=== PATIENT | female | born 1990 | race Caucasian/White ===

== ENCOUNTER 2018-10-24 13:18 | Outpatient (CLI) | payer OTHER ==
[~2018-10-24] VITALS: Ht 157.5 cm; Wt 100.4 kg
[2018-10-24 13:50] VITALS: BP 124/79; PULSE 95; Ht 157.5 cm; Wt 100.4 kg
[2018-10-24] MEDS ORDERED: PNV11TAB PO (13:52)
--- NOTE | 2018-10-24 19:20 | TRIAGE ---
OB Triage Datetime Report Generated by CPN: 10/24/2018 19:20 Datetime: 10/24/2018 17:05 Labor Evaluation Frequency: 0 Monitor Mode: External Pattern: Normal: <= 5 Contractions in 10 Minutes Resting Tone Ignacio: Relaxed Heart Rate FHR Baseline Rate: 135 Monitor Mode: External US Variability: Moderate 6-25 bpm Accelerations: 10X10 Decelerations: None Category: Category I Pain Assessment Pain Scale: 0 Pain Presence: None/Denies Pain Type: N/A Pain Goal: 3 Pain Relief Measures: Comfort Measures Datetime: 10/24/2018 16:13 Labor Evaluation Frequency: 0 Monitor Mode: External Pattern: Normal: <= 5 Contractions in 10 Minutes Resting Tone Ignacio: Relaxed Heart Rate FHR Baseline Rate: 145 Monitor Mode: External US Variability: Moderate 6-25 bpm Accelerations: 10X10 Decelerations: None Category: Category I Pain Assessment Pain Scale: 0 Pain Presence: None/Denies Pain Type: N/A Pain Goal: 3 Pain Relief Measures: Comfort Measures Datetime: 10/24/2018 14:56 Labor Evaluation Frequency: 0 Monitor Mode: External Pattern: Normal: <= 5 Contractions in 10 Minutes Resting Tone Ignacio: Relaxed Heart Rate FHR Baseline Rate: 145 Monitor Mode: External US Variability: Moderate 6-25 bpm Accelerations: 10X10 Decelerations: None Category: Category I Pain Assessment Pain Scale: 0 Pain Presence: None/Denies Pain Type: N/A Pain Goal: 3 Pain Relief Measures: Comfort Measures Datetime: 10/24/2018 13:59 Stage of : OB Triage Datetime: 10/24/2018 13:47 Stage of : OB Triage Assessment Type: Triage Maternal Assessment Level of Consciousness: Fully Conscious DTR's/Clonus: DTRs 2+; No Clonus Headache: Denies Blurred Vision: No Respiratory Effort: Unlabored; Regular Rhythm; Equal Expansion Breath Sounds, Left: Clear and Equal Breath Sounds, Right: Clear and Equal Nausea/Vomiting: Denies RUQ Epigastric Pain: Denies Facial Edema: None Temperature Route: Axillary Fall Risk Assessment History of Falling: (0) No Secondary Diagnosis: (0) No Ambulatory Aid: (0) Bedrest/Nurse Assist IV Therapy: (0) No Gait: (0) Normal/Bedrest/Immobile Mental Status: (0) Oriented to Own Ability Fall Score: 0 Fall Risk Score Definition: No Risk: No action required Labor Evaluation Frequency: 0 Monitor Mode: External Pattern: Normal: <= 5 Contractions in 10 Minutes Resting Tone Ignacio: Relaxed Heart Rate FHR Baseline Rate: 145 Monitor Mode: External US Variability: Moderate 6-25 bpm Decelerations: None Category: Category I Pain Assessment Pain Scale: 0 Pain Presence: None/Denies Pain Type: N/A Pain Goal: 3 Pain Relief Measures: Comfort Measures Datetime: 10/24/2018 13:44 Time of Arrival: 10/24/2018 13:15 EGA: 32.6 Arrived By: Ambulatory Arrived From: Office Chief Complaint: REFERRED FROM OFFICE TO EVALUATE FOR PIH, DENIES BLURRY VISION, HEADACHES OR EPIGA STRIC PAIN, DENIES LEAKING BLEEDING OR UC'S Movement: Present Contractions: Denies/Absent Rupture of Membranes: Denies Vaginal Bleeding: None Vaginal Discharge: Denies Recent Sexual Intercouse: Denies Abdominal Trauma: Not Applicable Patient Complaints: None Time Provider Notified: 10/24/2018 14:00 Provider Notified: STEVE Initial Plan: MONITOR, PIH PANEL, BPP, UA
--- NOTE | 2018-10-25 13:18 | PN ---
Triage Information Date/Time late entry for service was rendered on 10/24/18 Reason for visit: referred from clinic for PIH Weeks of Gestation [id number] /Para Diabetes: none Hypertention: none Objective Vital Signs Date Temp Pulse Resp B/P (MAP) Pulse Ox O2 O2 Flow FiO2 Time Delivery Rate 10/24/18 98.3 95 124/79 13:50 (94) Heart Rate: 140's Heart Rate Comments CAT I tracing Contractions: None Results/Medications Result Diagram: 10/24/18 1444 10/24/18 1444 Results 24 hrs Laboratory Tests Test 10/24/18 14:00 10/24/18 14:44 Urine Color LUIS FERNANDO Urine Clarity CLOUDY A Urine pH 5.0 Urine Specific [place] 1.024 Urine Ketones 1+ H Urine Nitrite NEGATIVE Urine Bilirubin NEGATIVE Urine Urobilinogen 1+ H Urine Leukocyte Esterase 3+ H Urine Microscopic RBC 1 Urine Microscopic WBC 7 H Urine Squamous Epithelial Cells MODERATE Urine Bacteria FEW A Urine Mucus FEW A Urine Hemoglobin NEGATIVE Urine Glucose NEGATIVE Urine Total Protein NEGATIVE White Blood Count 9.1 Red Blood Count 3.61 L Hemoglobin 11.6 L Hematocrit 33.7 L Mean Corpuscular Volume 93.4 Mean Corpuscular Hemoglobin 32.1 Mean Corpuscular Hemoglobin Concent 34.4 Red Cell Distribution Width 12.4 Platelet Count 208 Mean Platelet Volume 9.7 Immature Granulocytes % 0.700 H Neutrophils % 73.9 Lymphocytes % 16.0 Monocytes % 8.8 Eosinophils % 0.3 Basophils % 0.3 Nucleated Red Blood Cells % 0.0 Immature Granulocytes # 0.060 H Neutrophils # 6.7 Lymphocytes # 1.5 Monocytes # 0.8 Eosinophils # 0.0 Basophils # 0.0 Nucleated Red Blood Cells # 0.0 Prothrombin Time 12.6 Prothrombin Time Ratio 1.0 INR International Normalized Ratio 0.93 Activated Partial Thromboplast Time 25.6 Fibrinogen 482.0 H Sodium Level 135 Potassium Level 3.7 Chloride Level 107 Carbon Dioxide Level 22 Anion Gap 6 Blood Urea Nitrogen 8 Creatinine 0.45 Est Glomerular Filtrat Rate mL/min > 60 Glucose Level 93 Uric Acid 4.8 Calcium Level 9.1 Total Bilirubin 0.9 Direct Bilirubin 0.00 Indirect Bilirubin 0.9 Aspartate Amino Transf (AST/SGOT) 20 Alanine Aminotransferase (ALT/SGPT) 12 L Alkaline Phosphatase 61 Total Protein 6.4 Albumin 3.3 Globulin 3.10 Albumin/Globulin Ratio 1.06 Imaging Results BPP 8/8 MYRON 14.9 Disposition: Discharge Assessment/Plan A IUP 32w6d R/O PIH normotensive P RTH prn STEVIE WILSON MD Oct 25, 2018 11:57
== END 2018-10-24 17:15 | disposition home or self-care (01) ==
LOC: L-D 13:18 → OBT 13:18
PROVIDERS: ATTEND Obstetrics & Gynecology
DX: O13.3 Gestational [pregnancy-induced] hypertension without significant proteinuria, third trimester (principal); Z3A.32 32 weeks gestation of pregnancy
CPT/HCPCS: 76818; 80053; 81001; 84560; 85025; 85384; 85610; 85730; Z7500; G0463

== ENCOUNTER 2018-11-28 12:02 | Inpatient (IN) | payer OTHER ==
[~2018-11-28] VITALS: Ht 157.5 cm; Wt 102.6 kg
[~2018-11-28 12:02] MED LIST: PNV11TAB PO
[2018-11-28 12:19] VITALS: Ht 157.5 cm; Wt 102.6 kg
--- NOTE | 2018-11-28 15:35 | HP ---
Date/Time of Note Date/Time of Note DATE: 11/28/18 TIME: 15:32 OB - History Hx of Present Free Text/Dictation 37+WKS GA with +2 proteinuria and HTN in the office : 1 Para: 0 Care: Good Care Ultrasounds: Normal mid trimester US Obstetrical Complications: None, Gestational Hypertension Medical Complications: None Past Family/Social History * Past Medical, Surgical, Family and Obstetric Histories reviewed from chart. OB Admission Exam Physical Exam Abdomen: WNL Cervical Dilatation: None Effacement: 0% Membranes: Intact Heart Rate: 140's Accelerations: Accelerations Present Decelerations: No Decelerations Varibility: Moderate Contractions on Admission: None Last 72 hours Lab Results CBC & BMP 11/28/18 12:17 Liver Function Test 11/28/18 12:17 Alanine Aminotransferase (ALT/SGPT) 9 L Albumin 3.5 Alkaline Phosphatase 82 Aspartate Amino Transf (AST/SGOT) 18 Direct Bilirubin 0.00 Total Protein 6.6 OB Assessment/Plan Reason for admission: observation Other Assessment: PMH Denies PSH Denies Plan: Expectant Management Other plan: 24 hr urine for Protein NIC GASTELUM M.D. November 28, 2018 15:35
[2018-11-28] MEDS ORDERED: LIDOCAINE 1% (MPF) 30 ML INJ INJ PRN (16:00)
[2018-11-28] MEDS ORDERED: METHYLERGONOVINE 0.2 MG INJ IM PRN (16:00)
[2018-11-28] MEDS ORDERED: OXYTOCIN 30 UNITS/LR 500 ML IV PRN (16:00)
[2018-11-28] MEDS ORDERED: OXYTOCIN 30 UNITS/LR 500 ML IV SCH ×2 (16:00)
[2018-11-28] MEDS ORDERED: MISOPROSTOL 200 MCG TAB PR PRN (16:00)
[2018-11-28] MEDS ORDERED: CARBOPROST 250 MCG INJ IM PRN (16:00)
[2018-11-28] MEDS ORDERED: ACETAMINOPHEN 500 MG TAB PO PRN (21:30)
[2018-11-29] MEDS: LACTATED RINGER'S 1,000 ML IV SCH (20:41)
--- NOTE | 2018-11-29 20:56 | DS ---
Date/Time of Note Date/Time of Note DATE: 11/29/18 TIME: 20:53 Obstetrical Discharge Record Final Diagnosis Final Diagnosis: Term not delivered Other Final Diagnosis Normotensive. Complications Other (Ptsent in for high blood pressure but her BPs have been in the normal range while her and hr labs and 24 hour protein levels were very normal.) Augmentation: No Induction: No Rupture of Membranes: No Condition on Discharge Physical Assessment Last Vitals: 119/85 Voiding: Yes Bowel Movement: Yes Breast: Soft, non-tender Fundus: Other (gravid) Calf Tenderness: No Patient Condition: Good MARY GRACE ROMO MD November 29, 2018 20:56
== END 2018-11-29 21:04 | disposition home or self-care (01) | DRG 833 ==
LOC: OBT 12:02 → L-D 12:03 → OBT 15:30 → L-D 15:30
PROVIDERS: ADMIT Obstetrics & Gynecology; ATTEND Obstetrics & Gynecology
DX: O13.3 Gestational [pregnancy-induced] hypertension without significant proteinuria, third trimester (principal); Z3A.37 37 weeks gestation of pregnancy
CPT/HCPCS: 76818; 80053; 81001; 84156; 84560; 85025; 85384; 85610; 85730; 86592; 86850; 86900; 86901; G0463; J7120

== ENCOUNTER 2018-12-05 02:28 | Inpatient (IN) | payer OTHER ==
[~2018-12-05] VITALS: Ht 157.5 cm; Wt 103.9 kg
[2018-12-05] MEDS ORDERED: FERR134T PO (02:57)
[2018-12-05 02:58] VITALS: BP 146/90; PULSE 86; RESP 18
[2018-12-05] MEDS ORDERED: LACTATED RINGER'S 1,000 ML IV PRN (02:59)
[2018-12-05] MEDS ORDERED: CARBOPROST 250 MCG INJ IM PRN ×2 (03:00→17:00)
[2018-12-05] MEDS ORDERED: AMPICILLIN 2 GM/NS (PMX) 100 ML IV ONE (03:00)
[2018-12-05] MEDS ORDERED: LIDOCAINE 1% (MPF) 30 ML INJ INJ PRN (03:00)
[2018-12-05] MEDS ORDERED: METHYLERGONOVINE 0.2 MG INJ IM PRN ×2 (03:00→17:00)
[2018-12-05] MEDS ORDERED: IBUPROFEN 600 MG TAB PO PRN (03:00)
[2018-12-05] MEDS ORDERED: OXYTOCIN 30 UNITS/LR 500 ML IV PRN ×2 (03:00→17:00)
[2018-12-05] MEDS ORDERED: OXYTOCIN 30 UNITS/LR 500 ML IV SCH ×3 (03:00→11:00)
[2018-12-05] MEDS ORDERED: BUTORPHANOL 2 MG INJ IV PRN ×2 (03:00)
[2018-12-05] MEDS ORDERED: MISOPROSTOL 200 MCG TAB PR PRN ×2 (03:00→17:00)
--- NOTE | 2018-12-05 03:41 | TRIAGE ---
OB Triage Datetime Report Generated by CPN: 12/05/2018 03:41 Datetime: 12/05/2018 02:48 Stage of : OB Triage Labor Evaluation Frequency: 2-5 Monitor Mode: External Duration (sec)2399: 60 Quality: Moderate Pattern: Normal: <= 5 Contractions in 10 Minutes Resting Tone [place]: Relaxed Heart Rate FHR Baseline Rate: 145 Monitor Mode: External US FHR Baseline Changes: No Baseline Change Variability: Moderate 6-25 bpm Accelerations: 15X15 Decelerations: None Category: Category I Pain Assessment Pain Scale: 9 Pain Presence: Intermittent Pain Type: Contraction; Pressure Pain Location: Abdomen Vaginal Exam Dilatation (cms): 4.0 Effacement (%): 90 Station: -2 Exam By: Abiel oHlm Membrane Status: Intact Vaginal Bleeding: Normal Show Cervix, Consistency: Soft Cervix, Position: Midposition Presentation 'A': Cephalic Datetime: 12/05/2018 02:35 Stage of : OB Triage Maternal Assessment Level of Consciousness: Fully Conscious DTR's/Clonus: DTRs 2+; No Clonus Headache: Denies Blurred Vision: No Nausea/Vomiting: Denies RUQ Epigastric Pain: Denies Facial Edema: None Monitor Mode: External Resting Tone [place]: Relaxed Monitor Mode: External US Comments: FHT 145 Pain Assessment Pain Scale: 9 Pain Presence: Intermittent Pain Type: Contraction; Pressure Pain Location: Abdomen Datetime: 12/05/2018 02:32 Time of Arrival: 12/05/2018 02:25 EGA: 38.6 Arrived By: Wheelchair Arrived From: Home Chief Complaint: c/o ucs and pressure Movement: Present Contractions: Regular Time Contractions Began: 12/04/2018 23:00 Contractions: Q3 Rupture of Membranes: Denies Vaginal Bleeding: None Vaginal Discharge: Present Recent Sexual Intercouse: Denies Abdominal Trauma: Not Applicable Patient Complaints: Contractions Time Provider Notified: 12/05/2018 02:50 Provider Notified: Dr Erickson Initial Plan: EFM,SVE Datetime: 11/29/2018 20:23 Labor Evaluation Frequency: NONE Monitor Mode: External Resting Tone [place]: Relaxed Heart Rate FHR Baseline Rate: 145 Monitor Mode: External US Variability: Moderate 6-25 bpm Accelerations: 15X15 Decelerations: None Category: Category I Datetime: 11/29/2018 20:22 Vaginal Exam Dilatation (cms): 2.0 Effacement (%): 60 Station: -2 Exam By: dr. reiche Membrane Status: Intact Datetime: 11/29/2018 20:09 Stage of : Labor Assessment Type: Ongoing Assessment Maternal Assessment Level of Consciousness: Fully Conscious DTR's/Clonus: DTRs 2+; No Clonus Headache: Denies Blurred Vision: No Respiratory Effort: Unlabored; Regular Rhythm; Equal Expansion Breath Sounds, Left: Clear and Equal Breath Sounds, Right: Clear and Equal Nausea/Vomiting: Denies RUQ Epigastric Pain: Denies Lower Extremities Edema: Bilateral Lower Extremities Degree: 1+ Upper Extremities Edema: None Degree: None Facial Edema: None Temperature Route: Oral Fall Risk Assessment History of Falling: (0) No Secondary Diagnosis: (0) No Ambulatory Aid: (0) Bedrest/Nurse Assist IV Therapy: (0) No Gait: (0) Normal/Bedrest/Immobile Mental Status: (0) Oriented to Own Ability Fall Score: 0 Fall Risk Score Definition: No Risk: No action required Pain Assessment Pain Scale: 0 Pain Presence: None/Denies Pain Type: N/A Datetime: 11/29/2018 20:06 Monitor Mode: External Monitor Mode: External US Datetime: 11/29/2018 20:00 Labor Evaluation Frequency: NONE Monitor Mode: External Resting Tone [place]: Relaxed Heart Rate FHR Baseline Rate: 145 Monitor Mode: External US Variability: Moderate 6-25 bpm Accelerations: 15X15 Decelerations: None Category: Category I Datetime: 11/29/2018 19:44 Monitor Mode: External US Datetime: 11/29/2018 19:23 Monitor Mode: External US Datetime: 11/29/2018 18:58 Labor Evaluation Frequency: none Resting Tone [place]: Relaxed Heart Rate FHR Baseline Rate: 140 Monitor Mode: External US FHR Baseline Changes: No Baseline Change Variability: Moderate 6-25 bpm Accelerations: 15X15 Decelerations: None Category: Category I Membrane Status: Intact Datetime: 11/29/2018 17:58 Labor Evaluation Frequency: none Resting Tone [place]: Relaxed Heart Rate FHR Baseline Rate: 130 Monitor Mode: External US FHR Baseline Changes: No Baseline Change Variability: Moderate 6-25 bpm Accelerations: 15X15 Decelerations: None Category: Category I Pain Presence: None/Denies Membrane Status: Intact Datetime: 11/29/2018 16:55 Labor Evaluation Frequency: none Resting Tone [place]: Relaxed Heart Rate FHR Baseline Rate: 135 Monitor Mode: External US FHR Baseline Changes: No Baseline Change Variability: Moderate 6-25 bpm Accelerations: 15X15 Decelerations: None Category: Category I Pain Presence: None/Denies Membrane Status: Intact Datetime: 11/29/2018 15:58 Labor Evaluation Frequency: NONE Monitor Mode: External Pattern: Normal: <= 5 Contractions in 10 Minutes Resting Tone [place]: Relaxed Heart Rate FHR Baseline Rate: 143 Monitor Mode: External US FHR Baseline Changes: No Baseline Change Variability: Moderate 6-25 bpm Accelerations: 15X15 Decelerations: None Category: Category I Datetime: 11/29/2018 15:06 Labor Evaluation Frequency: NONE Pattern: Normal: <= 5 Contractions in 10 Minutes Resting Tone [place]: Relaxed Heart Rate FHR Baseline Rate: 145 Monitor Mode: External US FHR Baseline Changes: No Baseline Change Variability: Moderate 6-25 bpm Accelerations: 15X15 Decelerations: None Category: Category I Membrane Status: Intact Datetime: 11/29/2018 13:58 Labor Evaluation Frequency: NONE Monitor Mode: External Pattern: Normal: <= 5 Contractions in 10 Minutes Resting Tone [place]: Relaxed Heart Rate FHR Baseline Rate: 140 Monitor Mode: External US FHR Baseline Changes: No Baseline Change Variability: Moderate 6-25 bpm Accelerations: 15X15 Decelerations: None Category: Category I Membrane Status: Intact Datetime: 11/29/2018 10:15 Labor Evaluation Frequency: NONE Monitor Mode: External Pattern: Normal: <= 5 Contractions in 10 Minutes Resting Tone [place]: Relaxed Heart Rate FHR Baseline Rate: 135 Monitor Mode: External US FHR Baseline Changes: No Baseline Change Variability: Moderate 6-25 bpm Accelerations: 15X15 Decelerations: None Category: Category I Membrane Status: Intact Datetime: 11/29/2018 09:15 Labor Evaluation Frequency: none Monitor Mode: External Pattern: Normal: <= 5 Contractions in 10 Minutes Resting Tone [place]: Relaxed Heart Rate FHR Baseline Rate: 135 Monitor Mode: External US FHR Baseline Changes: No Baseline Change Variability: Moderate 6-25 bpm Accelerations: 15X15 Decelerations: None Category: Category I Pain Presence: None/Denies Membrane Status: Intact Datetime: 11/29/2018 08:16 Labor Evaluation Frequency: none Pattern: Normal: <= 5 Contractions in 10 Minutes Resting Tone [place]: Relaxed Heart Rate FHR Baseline Rate: 132 Monitor Mode: External US FHR Baseline Changes: No Baseline Change Variability: Moderate 6-25 bpm Accelerations: 15X15 Decelerations: None Category: Category I Pain Presence: None/Denies Membrane Status: Intact Datetime: 11/29/2018 07:43 Labor Evaluation Frequency: NONE Monitor Mode: External Quality: Mild Pattern: Normal: <= 5 Contractions in 10 Minutes Resting Tone [place]: Relaxed Contraction Comments: TOCO CHANGED , SITE CLEANED. Heart Rate FHR Baseline Rate: 136 Monitor Mode: External US FHR Baseline Changes: No Baseline Change Variability: Moderate 6-25 bpm Accelerations: 15X15 Decelerations: None Category: Category I Comments: MONITOR CHANGED , SITE CLEANED. Membrane Status: Intact Datetime: 11/29/2018 07:40 Assessment Type: Ongoing Assessment Maternal Assessment Level of Consciousness: Fully Conscious DTR's/Clonus: DTRs 2+; No Clonus Headache: Denies Blurred Vision: No Respiratory Effort: Unlabored; Regular Rhythm; Equal Expansion Breath Sounds, Left: Clear and Equal Breath Sounds, Right: Clear and Equal Nausea/Vomiting: Denies RUQ Epigastric Pain: Denies Lower Extremities Edema: None Degree: None Upper Extremities Edema: None Degree: None Facial Edema: None Fall Risk Assessment History of Falling: (0) No Secondary Diagnosis: (0) No Ambulatory Aid: (0) Bedrest/Nurse Assist IV Therapy: (0) No Gait: (0) Normal/Bedrest/Immobile Mental Status: (0) Oriented to Own Ability Fall Score: 0 Fall Risk Score Definition: No Risk: No action required Datetime: 11/29/2018 05:11 Stage of : Labor Headache: Denies Blurred Vision: No Monitor Mode: External Quality: Mild Pattern: Normal: <= 5 Contractions in 10 Minutes Resting Tone [place]: Relaxed Heart Rate FHR Baseline Rate: 130 Monitor Mode: External US Variability: Moderate 6-25 bpm Accelerations: 15X15 Decelerations: None Category: Category I Datetime: 11/29/2018 04:42 Heart Rate FHR Baseline Rate: 140 Monitor Mode: External US FHR Baseline Changes: No Baseline Change Variability: Moderate 6-25 bpm Accelerations: 15X15 Category: Category I Datetime: 11/29/2018 04:12 Stage of : Labor Heart Rate FHR Baseline Rate: 130 Monitor Mode: External US Variability: Moderate 6-25 bpm Accelerations: 15X15 Category: Category I Datetime: 11/29/2018 03:54 Heart Rate FHR Baseline Rate: 140 Monitor Mode: External US Datetime: 11/29/2018 03:26 Stage of : Labor Quality: Mild Pattern: Normal: <= 5 Contractions in 10 Minutes Resting Tone [place]: Relaxed Heart Rate FHR Baseline Rate: 140 Monitor Mode: External US Datetime: 11/29/2018 03:05 Membrane Status: Intact Datetime: 11/29/2018 02:34 Stage of : Labor Monitor Mode: External Quality: Mild Pattern: Normal: <= 5 Contractions in 10 Minutes Resting Tone [place]: Relaxed Heart Rate FHR Baseline Rate: 130 Monitor Mode: External US Datetime: 11/29/2018 01:53 Comments: Pt frequently moving in bed. Difficult to monitor baby Datetime: 11/29/2018 01:16 Stage of : Labor Heart Rate FHR Baseline Rate: 135 Monitor Mode: External US Variability: Moderate 6-25 bpm Accelerations: 15X15 Datetime: 11/29/2018 00:44 Monitor Mode: External Quality: Mild Resting Tone [place]: Relaxed Heart Rate FHR Baseline Rate: 150 Monitor Mode: External US Datetime: 11/29/2018 00:19 Stage of : Labor Monitor Mode: External Quality: Mild Pattern: Normal: <= 5 Contractions in 10 Minutes Resting Tone [place]: Relaxed Heart Rate FHR Baseline Rate: 145 Monitor Mode: External US FHR Baseline Changes: No Baseline Change Variability: Moderate 6-25 bpm Accelerations: 15X15 Pain Assessment Pain Scale: 0 Pain Presence: None/Denies Datetime: 11/28/2018 23:23 Stage of : Labor Quality: Mild Pattern: Normal: <= 5 Contractions in 10 Minutes Resting Tone [place]: Relaxed Heart Rate FHR Baseline Rate: 150 Monitor Mode: External US Variability: Moderate 6-25 bpm Accelerations: 15X15 Datetime: 11/28/2018 22:52 Stage of : Labor Monitor Mode: External Quality: Mild Pattern: Normal: <= 5 Contractions in 10 Minutes Resting Tone [place]: Relaxed Heart Rate FHR Baseline Rate: 150 Monitor Mode: External US FHR Baseline Changes: No Baseline Change Variability: Moderate 6-25 bpm Accelerations: 15X15 Decelerations: None Category: Category I Datetime: 11/28/2018 22:00 Stage of : Labor Assessment Type: Ongoing Assessment Maternal Assessment Level of Consciousness: Fully Conscious DTR's/Clonus: DTRs 2+; No Clonus Headache: Generalized Blurred Vision: No Respiratory Effort: Unlabored; Regular Rhythm; Equal Expansion Breath Sounds, Left: Clear and Equal Breath Sounds, Right: Clear and Equal Nausea/Vomiting: Denies RUQ Epigastric Pain: Denies Lower Extremities Edema: None Degree: None Upper Extremities Edema: None Degree: None Facial Edema: None Fall Risk Assessment History of Falling: (0) No Secondary Diagnosis: (0) No Ambulatory Aid: (0) Bedrest/Nurse Assist IV Therapy: (0) No Gait: (0) Normal/Bedrest/Immobile Mental Status: (0) Oriented to Own Ability Fall Score: 0 Fall Risk Score Definition: No Risk: No action required Monitor Mode: External Quality: Mild Pattern: Normal: <= 5 Contractions in 10 Minutes Resting Tone [place]: Relaxed Heart Rate FHR Baseline Rate: 140 Monitor Mode: External US Datetime: 11/28/2018 20:47 Monitor Mode: External Quality: Mild Resting Tone [place]: Relaxed Heart Rate FHR Baseline Rate: 145 Monitor Mode: External US Datetime: 11/28/2018 20:23 Stage of : Labor Monitor Mode: External Quality: Mild Pattern: Normal: <= 5 Contractions in 10 Minutes Resting Tone [place]: Relaxed Heart Rate FHR Baseline Rate: 140 Monitor Mode: External US FHR Baseline Changes: No Baseline Change Variability: Moderate 6-25 bpm Accelerations: 15X15 Decelerations: None Category: Category I Datetime: 11/28/2018 19:50 Stage of : Labor Quality: Mild Resting Tone [place]: Relaxed Heart Rate FHR Baseline Rate: 150 Monitor Mode: External US Variability: Moderate 6-25 bpm Accelerations: 15X15 Pain Assessment Pain Scale: 2 Pain Presence: Constant Pain Type: Ache Pain Location: Head Datetime: 11/28/2018 19:29 Stage of : Labor Maternal Assessment Level of Consciousness: Fully Conscious DTR's/Clonus: DTRs 2+ Headache: Generalized Blurred Vision: No Nausea/Vomiting: Denies RUQ Epigastric Pain: Denies Facial Edema: None Monitor Mode: External Quality: Mild Pattern: Normal: <= 5 Contractions in 10 Minutes Resting Tone [place]: Relaxed Heart Rate FHR Baseline Rate: 140 Monitor Mode: External US FHR Baseline Changes: No Baseline Change Variability: Moderate 6-25 bpm Accelerations: 15X15 Decelerations: None Category: Category I Pain Assessment Pain Scale: 2 Pain Presence: Constant Pain Type: Ache Pain Location: Head Datetime: 11/28/2018 19:01 Labor Evaluation Frequency: OCC Monitor Mode: External Duration (sec)2399: 60 Quality: Mild Pattern: Normal: <= 5 Contractions in 10 Minutes Resting Tone [place]: Relaxed Heart Rate FHR Baseline Rate: 135 Variability: Moderate 6-25 bpm Accelerations: 15X15 Decelerations: None Category: Category I Pain Presence: None/Denies Pain Type: N/A Datetime: 11/28/2018 17:01 Labor Evaluation Frequency: OCC Monitor Mode: External Duration (sec)2399: 60-90 Quality: Mild Pattern: Normal: <= 5 Contractions in 10 Minutes Resting Tone [place]: Relaxed Heart Rate FHR Baseline Rate: 135 Monitor Mode: External US Variability: Moderate 6-25 bpm Accelerations: 15X15 Decelerations: None Category: Category I Pain Presence: None/Denies Pain Type: N/A Datetime: 11/28/2018 15:58 Assessment Type: Admission Assessment Vaginal Bleeding: None Maternal Assessment Level of Consciousness: Fully Conscious DTR's/Clonus: DTRs 2+; No Clonus Headache: Generalized Blurred Vision: No Respiratory Effort: Unlabored; Regular Rhythm; Equal Expansion Breath Sounds, Left: Clear and Equal Breath Sounds, Right: Clear and Equal Nausea/Vomiting: Denies RUQ Epigastric Pain: Denies Lower Extremities Edema: None Degree: None Upper Extremities Edema: None Degree: None Facial Edema: None Fall Risk Assessment History of Falling: (0) No Secondary Diagnosis: (0) No Ambulatory Aid: (0) Bedrest/Nurse Assist IV Therapy: (0) No Gait: (0) Normal/Bedrest/Immobile Mental Status: (0) Oriented to Own Ability Fall Score: 0 Fall Risk Score Definition: No Risk: No action required Heart Rate FHR Baseline Rate: 135 Variability: Moderate 6-25 bpm Accelerations: 15X15 Decelerations: None Category: Category I Pain Assessment Pain Scale: 0 Pain Presence: None/Denies Datetime: 11/28/2018 15:56 Time of Arrival: 11/28/2018 15:45 EGA: 37.6 Arrived By: Ambulatory Arrived From: Other Unit in Hospital Datetime: 11/28/2018 15:23 Stage of : OB Triage Datetime: 11/28/2018 15:10 Stage of : OB Triage Datetime: 11/28/2018 15:00 Stage of : OB Triage Datetime: 11/28/2018 12:26 Stage of : OB Triage Datetime: 11/28/2018 12:10 Time of Arrival: 11/28/2018 12:11 EGA: 37.6 Arrived By: Ambulatory Arrived From: Dr. Yarbrough Chief Complaint: evaluation for high blood pressure Movement: Present Contractions: Denies/Absent Rupture of Membranes: Denies Vaginal Bleeding: None Vaginal Discharge: Denies Recent Sexual Intercouse: Denies Abdominal Trauma: Not Applicable Patient Complaints: Other Additional Patient Complaints: sent from clinic for evaluation due to high blood pressure at the inic, denies h/a, blurry vision and epigastirc pain at present. reflexes WNL, 0 clonus, plus 1 edema both extremeties Time Provider Notified: 11/28/2018 12:27 Provider Notified: Dr Oliver Initial Plan: efm/ u/s, u/a, PIH panel Datetime: 11/28/2018 12:09 Stage of : OB Triage Maternal Assessment Level of Consciousness: Fully Conscious DTR's/Clonus: DTRs 2+; No Clonus Headache: Denies Blurred Vision: No Respiratory Effort: Unlabored; Regular Rhythm; Equal Expansion Breath Sounds, Right: Clear and Equal Nausea/Vomiting: Denies RUQ Epigastric Pain: Denies Lower Extremities Edema: Bilateral Lower Extremities Degree: 1+ Upper Extremities Edema: None Degree: None Facial Edema: None Temperature Route: Oral Fall Risk Assessment History of Falling: (0) No Secondary Diagnosis: (0) No Ambulatory Aid: (0) Bedrest/Nurse Assist IV Therapy: (0) No Gait: (0) Normal/Bedrest/Immobile Mental Status: (0) Oriented to Own Ability Fall Score: 0 Fall Risk Score Definition: No Risk: No action required Monitor Mode: External Heart Rate FHR Baseline Rate: 150 (Annotations: initial) Monitor Mode: External US Pain Assessment Pain Scale: 0 Datetime: 10/24/2018 13:47 Fall Score: 0 Fall Risk Score Definition: No Risk: No action required Datetime: 10/24/2018 13:44 EGA: 32.6
[2018-12-05] MEDS ORDERED: MINERAL OIL LIGHT 10 ML VIAL TOP ONE (04:00)
--- NOTE | 2018-12-05 04:27 | PREAC ---
Date/Time of Note Date/Time of Note DATE: 12/05/18 TIME: : Anesthesia Eval and Record Evaluation Time Pre-Procedure Interview DATE: 12/05/18 TIME: : Age 28 Sex female NPO: 8 hrs Preoperative diagnosis labor pain Planned procedure epidural Past Medical History Past Medical History: Includes GI: Morbid obesity Surgery & Anesthesia Issues No known issue Meds Anticoagulation: No Beta Debra within 24 hr: No Reason Beta Debra not given: Pt. not on B-Debra Reported Medications Ferrous Sulfate (Iron) 134 Mg Tablet, 134 MG PO DAILY, TAB 12/05/18 [id number] ( ) 1 Each Tablet, 1 TAB PO DAILY, TAB 10/24/18 Current Medications Lactated Ringer's 1,000 ml @ 125 mls/hr Q8H IV ; Start 12/05/18 at 02:59 Ampicillin 50 ml @ 100 mls/hr Q4H IV ; Start 12/05/18 at 07:00 Butorphanol Tartrate (Stadol) 1 mg Q2H PRN IV .PAIN SCALE 1-5; Start 12/05/18 at 03:00 Butorphanol Tartrate (Stadol) 2 mg Q2H PRN IV .PAIN SCALE 6-10 Last administered on 12/05/18at 03:38; Admin Dose 2 MG; Start 12/05/18 at 03:00 Lidocaine (Xylocaine 1% (Mpf)) 30 ml ONCE PRN INJ .EPISIOTOMY; Start 12/05/18 at 03:00 Oxytocin/Lactated Ringer's 500 ml @ 500 mls/hr ONCE POST IV ; Start 12/05/18 at 03:00 Oxytocin/Lactated Ringer's 500 ml @ 125 mls/hr POST IV ; Start 12/05/18 at 03:00 Ibuprofen (Motrin) 600 mg ONCE PRN PO .PAIN 1-5; Start 12/05/18 at 03:00 Lactated Ringer's 1,000 ml @ 2,000 mls/hr Q30M PRN IV .ANESTHESIA Last administered on 12/05/18at 03:29; Admin Dose 2,000 MLS/HR; Start 12/05/18 at 02:59 Oxytocin/Lactated Ringer's 500 ml @ 0 mls/hr ONCE PRN IV .VAGINAL BLEEDING; Start 12/05/18 at 03:00 Methylergonovine Maleate (Methergine) 0.2 mg ONCE PRN IM .VAGINAL BLEEDING; Start 12/05/18 at 03:00 Carboprost Tromethamine (Hemabate) 250 mcg ONCE PRN IM .VAGINAL BLEEDING; Start 12/05/18 at 03:00 Misoprostol (Cytotec) 1,000 mcg ONCE PRN WI .VAGINAL BLEEDING; Start 12/05/18 at 03:00 Meds reviewed: Yes Allergies Coded Allergies: No Known Allergy (Unverified , 12/05/18) Allergies Reviewed: Yes Labs/Studies Labs Reviewed: Reviewed by anesthesiologist Result Diagram: 12/05/18 0401 Laboratory Tests 12/05/18 04:01 test: Positive Studies: ECG (n/a), CXR (n/a) Pre-procedure Exam Last vitals Vital Signs Date Temp Pulse Resp B/P (MAP) Pulse Ox O2 O2 Flow FiO2 Time Delivery Rate 12/05/18 98.2 86 18 146/90 Room Air 02:58 (108) Airway: Adequate mouth opening Mallampati: Mallampati I Teeth: Normal Lung: Normal Heart: Normal ASA Physical Status ASA physical status: 2 Emergency: None Planned Anesthetic Neuraxial: Epidural Pre-operative Attestations Prior to commencing anesthesia and surgery, the patient was re-evaluated, there was verification of: *The patient's identity *The results of appropriate recent lab work and preoperative vital signs *The above evaluation not changing prior to induction *Anesthetic plan, risk benefits, alternative and complications discussed with patient/family; questions answered; patient/family understands, accepts and wishes to proceed. RU AMAYA MD December 05, 2018 04:27
[2018-12-05] MEDS ORDERED: ONDANSETRON 4 MG INJ IV PRN (04:30)
[2018-12-05] MEDS ORDERED: NALOXONE (0.4 MG/ML) INJ IV PRN (04:30)
[2018-12-05] MEDS ORDERED: DIPHENHYDRAMINE 50 MG INJ IV PRN (04:30)
[2018-12-05] MEDS ORDERED: FENTAnyl 2MCG/ML-ROPIV 0.2% 100 ML BAG EPI SCH (04:30)
[2018-12-05] MEDS ORDERED: FENTAnyl 2MCG/ML-ROPIV 0.2% 100 ML ONE (04:48)
[2018-12-05] MEDS ORDERED: EPHEDrine 25 MG/5 ML SYG IV PRN (05:00)
[2018-12-05] MEDS: LACTATED RINGER'S 1,000 ML IV SCH ×3 (05:04→08:00)
[2018-12-05] MEDS: AMPICILLIN 1 GM/NS (PMX) 50 ML IV SCH ×2 (06:59→11:19)
--- NOTE | 2018-12-05 15:48 | LDN ---
Date/Time of Note Date/Time of Note DATE: 12/05/18 TIME: 15:38 Delivery Summary frequent short variable IUPC of normal female Weeks of Gestation 38w6d Placenta Delivered: Spontaneously Meconium: none Episiotomy: Yes Indication for episiotomy deep variable decelerations Perineal laceration: 0 Laceration repair: ep repaired with 00 ch gut Anesthesia type: Epidural Estimated blood loss: 250 Sponge & Needle done & correct: Yes All needle counts correct: Yes Any foreign bodies felt in the: No Delivery Information Sex Sex: female Apgars 1 Minute: 8 5 Minute: 9 Suctioning Nose & mouth suctioned at martha: Yes Delee suction performed: Yes Umbilical Cord Umbilical cord with: 3 Vessels Cord presentations: no nuchal cord Cord Blood was obtained: Yes Mother & Baby Disposition Disposition tachycardia 180 neonatalogist came rec to observe 160-170 will be ok unless more thah 200 Mom & Baby to Maternity; Good: Yes Mom transferred to: Other Baby to NICU: No () STEVIE WILSON MD December 05, 2018 15:48
--- NOTE | 2018-12-05 15:55 | HP ---
Date/Time of Note Date/Time of Note DATE: 12/05/18 TIME: 15:49 OB - History Hx of Present Free Text/Dictation 27y.o at 38w6d in active labor . initial exam //-3 uc's q2-3min CAT II tracing per nurses note her course was enevenful admitted for expectant management GBS pos , positive for marijuana Chief Complaint: uc's Estimated Due Date: Dec 13, 2018 : 1 Para: 0 Spontaneous : 0 Therapeutic : 0 Care: Good Care Ultrasounds: Normal mid trimester US Obstetrical Complications: None Medical Complications: None Past Family/Social History * Past Medical, Surgical, Family and Obstetric Histories reviewed from chart. Blood Type: A+ Rubella: immune RPR/VDRL: Negative GBS Status: Positive HBsAG: Negative OB Admission Exam Vital Signs Vital Signs Vital Signs Date Temp Pulse Resp B/P (MAP) Pulse Ox O2 O2 Flow FiO2 Time Delivery Rate 12/05/18 98.2 86 18 146/90 Room Air 02:58 (108) Physical Exam HEENT: WNL Heart: Rhythm Normal Lungs: Clear, Equal Abdomen: WNL Extremities: Normal Reflexes: Normal Cervical Dilatation: 4cm Effacement: Other (90) Station: -3 Membranes: Intact Amniotic Fluid: Unevaluable Heart Rate: 130's Accelerations: Accelerations Present Decelerations: Variable Decelerations Varibility: Moderate Contractions on Admission: < 5 Minutes Apart Intensity: Moderate Last 72 hours Lab Results CBC & BMP 12/05/18 04:01 Liver Function Test 12/05/18 04:01 Alanine Aminotransferase (ALT/SGPT) 19 Albumin 3.5 Alkaline Phosphatase 97 Aspartate Amino Transf (AST/SGOT) 14 L Direct Bilirubin 0.00 Total Protein 6.6 OB Assessment/Plan Reason for admission: active labor Other Assessment: A IUP 38w6d in labor Plan: Expectant Management STEVIE WILSON MD December 05, 2018 15:55
[2018-12-05] MEDS ORDERED: LANOLIN HPA 1 PKT TOP PRN (17:00)
[2018-12-05] MEDS ORDERED: OXYCODONE/ASPIRIN (4.88/325) TAB PO PRN ×2 (17:00)
[2018-12-05] MEDS ORDERED: WITCH HAZEL/GLYCERIN PAD PR PRN (17:00)
[2018-12-05] MEDS ORDERED: ZOLPIDEM 5 MG TAB PO PRN (17:00)
[2018-12-05] MEDS ORDERED: BENZOCAINE 20% 56 ML SPRAY TOP PRN (17:00)
[2018-12-05 17:05] VITALS: BP 139/79; PULSE 72; RESP 20
[2018-12-05] MEDS: IBUPROFEN 600 MG TAB PO SCH (17:29)
[2018-12-05 21:00] VITALS: BP 120/73; PULSE 76; RESP 18
[2018-12-05] MEDS: SENNA/DOCUSATE NA (8.6MG/50MG) TAB PO SCH (21:17)
[2018-12-06 00:30] VITALS: BP 121/71; PULSE 77; RESP 18
[2018-12-06] MEDS: IBUPROFEN 600 MG TAB PO SCH ×4 (00:30→17:39)
[2018-12-06] MEDS: LACTATED RINGER'S 1,000 ML IV SCH ×3 (02:59→18:59)
[2018-12-06 03:31] VITALS: BP 104/58; PULSE 78; RESP 18
[2018-12-06 08:30] VITALS: BP 107/63; PULSE 72; RESP 19
[2018-12-06] MEDS: SENNA/DOCUSATE NA (8.6MG/50MG) TAB PO SCH ×2 (09:48→21:00)
[2018-12-06 16:00] VITALS: BP 118/62; PULSE 74; RESP 20
--- NOTE | 2018-12-06 16:50 | QN ---
Documentation Comment day #1 Status post Patient stable and afebrile Vital signs stable VS - Last 72 Hours, by Label Date Temp Pulse Resp B/P (MAP) Pulse Ox O2 O2 Flow FiO2 Time Delivery Rate 12/06/18 97.9 74 20 118/62 16:00 (80) 12/06/18 98.1 72 19 107/63 Room Air 08:30 (78) 12/06/18 97.8 78 18 104/58 Room Air 03:31 (73) 12/06/18 98.2 77 18 121/71 Room Air 00:30 (88) 12/05/18 98.1 76 18 120/73 Room Air 21:00 (89) 12/05/18 98.7 72 20 139/79 98 Room Air 17:05 (99) 12/05/18 98.2 86 18 146/90 Room Air 02:58 (108) Hematology - 72 Hrs Test 12/05/18 04:01 12/06/18 07:21 Hematocrit 37.9 % (37.0-47.0) 35.8 % (37.0-47.0) L Hemoglobin 13.0 g/dl (12.0-16.0) 11.9 g/dl (12.0-16.0) L Mean Corpuscular 32.1 pg (29.0-33.0) 32.0 pg (29.0-33.0) Hemoglobin Mean Corpuscular 34.3 g/dl (32.0-37.0) 33.2 g/dl (32.0-37.0) Hemoglobin Concent Mean Corpuscular Volume 93.6 fl (82.0-101.0) 96.2 fl (82.0-101.0) Mean Platelet Volume 10.0 fl (7.4-10.4) 10.8 fl (7.4-10.4) H Platelet Count 201 10^3/UL (140-415) 199 10^3/UL (140-415) Red Blood Count 4.05 10^6/ul (4.20-5.40) 3.72 10^6/ul (4.20-5.40) L L Red Cell Distribution 12.1 % (11.5-14.5) 12.7 % (11.5-14.5) Width White Blood Count 16.3 10^3/ul (4.8-10.8) 12.7 10^3/ul (4.8-10.8) #H #H Chemistry Test 12/05/18 04:01 Sodium Level 137 mmol/L (135-144) Potassium Level 3.4 mmol/L (3.5-5.1) L Chloride Level 108 mmol/L (97-110) Carbon Dioxide Level 20 mmol/L (21-31) L Anion Gap 9 (5-13) Blood Urea Nitrogen 6 mg/dl (7-20) L Creatinine 0.46 mg/dl (0.44-1.00) Est Glomerular Filtrat Rate mL/min > 60 mL/min (>60) Glucose Level 112 mg/dl (70-220) Uric Acid 4.3 mg/dl (3.1-7.9) Calcium Level 8.9 mg/dl (8.4-10.2) Total Bilirubin 1.3 mg/dl (0.2-1.3) Direct Bilirubin 0.00 mg/dl (0.00-0.20) Indirect Bilirubin 1.3 mg/dl (0-1.1) H Aspartate Amino Transf (AST/SGOT) 14 IU/L (15-46) L Alanine Aminotransferase (ALT/SGPT) 19 IU/L (13-69) Alkaline Phosphatase 97 IU/L (42-121) Total Protein 6.6 g/dl (6.1-8.1) Albumin 3.5 g/dl (3.3-4.9) Globulin 3.10 g/dl (1.3-3.2) Albumin/Globulin Ratio 1.12 Abdomen soft, fundus firm Perineum intact Extremities nontender Assessment and plan Patient stable and doing well Continue with routine care AMANDA MARTINO MD December 06, 2018 16:50
[2018-12-06 19:40] VITALS: BP 115/67; PULSE 66; RESP 19
[2018-12-07] MEDS: IBUPROFEN 600 MG TAB PO SCH ×3 (00:10→11:16)
[2018-12-07] MEDS: LACTATED RINGER'S 1,000 ML IV SCH (02:59)
[2018-12-07 04:00] VITALS: BP 124/80; PULSE 84; RESP 19
[2018-12-07 08:00] VITALS: BP 126/80; PULSE 81; RESP 20
[2018-12-07] MEDS ORDERED: DIPHTH/TET/ACEL PERTUSS (ADULT) 0.5 ML VIAL IM* ONE (09:00)
[2018-12-07] MEDS: SENNA/DOCUSATE NA (8.6MG/50MG) TAB PO SCH (09:27)
--- NOTE | 2018-12-07 13:10 | PN ---
Date/Time of Note Date/Time of Note DATE: 12/07/18 TIME: 13:08 OB Subjective Subjective Subjective PPD# 2 Patient is doing well. She denies nausea, vomiting, shortness of breath, chest pain, headache. She has been ambulating without difficulty, tolerating regular diet. Pain is well controlled on current medications OB Objective Objective Objective Vital Signs Date Temp Pulse Resp B/P (MAP) Pulse Ox O2 O2 Flow FiO2 Time Delivery Rate 12/07/18 97.6 81 20 126/80 Room Air 08:00 (95) 12/05/18 98 17:05 General: AAO X 3, comfortable, NAD, appropriate mood and affect. ABD: +BS. Soft, non-tender. Uterus 2 cm below umbilicus Flank: No CVA tenderness (B/L) LE: Mild edema. No clubbing, cyanosis, thigh or calf tenderness (B/L). Homans 'sign is negative OB Assessment/Plan Other plan: 27 years old 1 para 1-0-0-1 s/p normal vaginal delivery at 38 weeks and 6 days. PPD#2 - AF, VSS - Baby is doing well, at bed side. She is bonding well - Contraception methods with R/B/A/FR discussed - Continue care - Discharge home - Rx and instruction given - Follow up in 2 and 6 weeks at clinic DIXIE GRANT December 07, 2018 13:10
--- NOTE | 2018-12-07 13:11 | DS ---
Date/Time of Note Date/Time of Note DATE: 12/07/18 TIME: 13:10 Obstetrical Discharge Record Final Diagnosis Final Diagnosis: Term delivered Other Final Diagnosis 27 years old 1 para 1-0-0-1 s/p normal vaginal delivery at 38 weeks and 6 days. PPD#2. Her some course was unremarkable. She is ambulating and tolerating regular diet.she is voiding without difficulty. - AF, VSS - Baby is doing well, at bed side. She is bonding well - Contraception methods with R/B/A/FR discussed - Continue care - Discharge home - Rx and instruction given - Follow up in 2 and 6 weeks at clinic Vaginal Delivery Obstetrical Delivery: Spontaneous Condition on Discharge Physical Assessment Voiding: Yes Bowel Movement: Yes Breast: Soft, non-tender Fundus: Firm Calf Tenderness: No Patient Condition: Stable DIXIE GRANT December 07, 2018 13:11
--- NOTE | 2018-12-08 16:32 | DELSUM ---
Delivery Summary A-C Datetime Report Generated by CPN: 12/08/2018 16:32 DELIVERY PERSONNEL Construction Crew Member: Albin, Amy MATERNAL INFORMATION Delivery Anesthesia: Local; Epidural Delivery QBL (ml): 250 Placenta Cultured: No Maternal Complications: None LABOR SUMMARY EDC: 12/13/2018 00:00 No. Babies in Womb: 1 Attempted: No Labor Anesthesia: Epidural LABOR INFORMATION Reason for Induction: Not Applicable Onset of Labor: 12/05/2018 04:30 Complete Dilatation: 12/05/2018 11:25 Oxytocin: N/A Group B Beta Strep: Positive Antibiotics # of Doses: 3 Antibiotics Time of Last Dose: 12/05/2018 11:00 Steroids Given: None Reason Steroids Not Administered: Not Applicable MEMBRANES Membranes Rupture Method: Artificial Rupture of Membranes: 12/05/2018 11:44 Length of Rupture (hr): 2.52 Amniotic Fluid Color: Clear Amniotic Fluid Amount: Moderate Amniotic Fluid Odor: Normal STAGES OF LABOR Stage 1 hr: 6 Stage 1 min: 55 Stage 2 hr: 2 Stage 2 min: 50 Stage 3 hr: 0 Stage 3 min: 7 Total Time in Labor hr: 9 Total Time in Labor min: 52 VAGINAL DELIVERY Episiotomy: Median Laceration Extension: N/A Laceration Type: None Laceration Repair: Yes Initial Vag Sponge Count: 10 Final Vag Sponge Count: 10 Initial Vag Sharps Count: 2 Final Vag Sharps Count: 2 Sponge Count Correct: Yes; Vaginal Sweep Performed Sharps Count Correct: Yes BABY A INFORMATION Delivery Date/Time: 12/05/2018 14:15 Method of Delivery: Vaginal Born in Route : No : N/A Forceps: N/A Vacuum Extraction: N/A Shoulder Dystocia : No SHOULDER DYSTOCIA BABY A Infant Delivery Date/Time: 12/05/2018 14:15 PRESENTATION/POSITION BABY A Presentation: Cephalic Cephalic Presentation: Vertex Vertex Position: Left Occipital Anterior Breech Presentation: N/A PLACENTA INFORMATION BABY A Placenta Delivery Time : 12/05/2018 14:22 Placenta Method of Delivery: Spontaneous Placenta Status: Delivered SCORES BABY A Heart Rate 1 min: >100 bpm Resp Effort 1 min: Good Cry Reflex Irritability 1 min: Cough/Sneeze/Pulls Away Muscle Tone 1 min: Active Motion Color 1 min: Blue/Pale Resuscitation Effort 1 min: Tactile Stimulation SCORE 1 MIN: 8 Heart Rate 5 min: >100 bpm Resp Effort 5 min: Good Cry Reflex Irritability 5 min: Cough/Sneeze/Pulls Away Muscle Tone 5 min: Active Motion Color 5 min: Body [place], Extremit Blue Resuscitation Effort 5 min: Tactile Stimulation SCORE 5 MIN: 9 INFANT INFORMATION BABY A Gestational Age at Delivery: 38.6 Gestational Status: Early Term- 37- 38.6 Weeks Outcome : Liveborn Infant Condition : Stable Sex: Female IDENTIFICATION/MEDS BABY A ID Band Number: [id number] Sensor Applied: Yes Sensor Number: [id number] WEIGHT/LENGTH BABY A Infant Birthweight (gm): 3150 Weight (lb): 6 Infant Weight (oz): 15 Infant Length (in): 19.00 Length (cm): 48.26 CORD INFORMATION BABY A No. Cord Vessels: 3 Nuchal Cord : N/A Cord Blood Taken: Yes Infant Suction: Mouth; Nose ASSESSMENT BABY A Complications: None Physical Findings at Delivery: Within Normal Limits
--- NOTE | 2018-12-09 08:10 | PAC ---
Date/Time of Note Date/Time of Note DATE: 12/06/18 TIME: 08:09 Post-Anesthesia Notes Post-Anesthesia Note Last documented vital signs Vital Signs Date Temp Pulse Resp B/P (MAP) Pulse Ox O2 O2 Flow FiO2 Time Delivery Rate 12/07/18 97.6 81 20 126/80 98 Room Air 08:00 (95) 12/05/18 98 17:05 Activity: WNL Respiratory function: WNL Cardiovascular function: WNL Mental status: Baseline Pain reasonably controlled: Yes Hydration appropriate: Yes Nausea/Vomiting absent: No RU AMAYA MD December 09, 2018 08:10
== END 2018-12-07 15:05 | disposition home or self-care (01) | DRG 807 ==
LOC: OBT 02:28 → L-D 02:30 → OBT 02:55 → L-D 02:55 → PP1 16:34
PROVIDERS: ADMIT Obstetrics & Gynecology; ATTEND Obstetrics & Gynecology
PROC: 10E0XZZ Delivery of Products of Conception, External Approach (ICD-10-PCS; principal; 2018-12-05)
PROC: 0W8NXZZ Division of Female Perineum, External Approach (ICD-10-PCS; 2018-12-05)
DX: O99.214 Obesity complicating childbirth (principal); Z37.0 Single live birth; E66.01 Morbid (severe) obesity due to excess calories; O99.824 Streptococcus B carrier state complicating childbirth; O76 Abnormality in fetal heart rate and rhythm complicating labor and delivery; Z3A.38 38 weeks gestation of pregnancy; Z23 Encounter for immunization
CPT/HCPCS: 62322; 80053; 80307; 81001; 84560; 85025; 85610; 85730; 86592; 86850; 86900; 86901; 87086; 87340; 90715; 99464; G0463; J0290; J0595; J2590; J3010; J7120

== ENCOUNTER 2018-12-15 12:30 | Emergency (ER) | payer OTHER ==
[~2018-12-15] VITALS: Wt 100.0 kg
[~2018-12-15 12:30] MED LIST changes: +FERR134T PO
[2018-12-15 12:33] VITALS: BP 140/88; PULSE 63; RESP 18
[2018-12-15] MEDS ORDERED: SOD CHLORIDE 0.9% 1,000 ML IV STA (13:20)
[2018-12-15] MEDS ORDERED: KETOROLAC 30 MG INJ IV STA (13:20)
[2018-12-15] MEDS ORDERED: DIPHENHYDRAMINE 50 MG INJ IV STA (13:20)
[2018-12-15] MEDS ORDERED: ONDANSETRON 4 MG INJ IV STA (13:20)
--- NOTE | 2018-12-15 13:39 | ERD ---
ER Documentation Chief Complaint Chief Complaint HEADACHE AND NECK PAIN . S/P EPIDURAL 1 WK AGO. POST NO NEURO DEF HPI 28-year-old female with no significant past medical history presents to the emergency department complaining of intermittent headache and neck pain for the past 2 days. Symptoms are constant, 9/10 in severity, slightly alleviated with ibuprofen at home. She denies any recent sickness, nausea, vomiting, diarrhea, abdominal pain, fevers, chills, or other symptoms. She does admit to some photosensitivity. ROS All systems reviewed and are negative except as per history of present illness. Medications Home Meds Active Scripts Cephalexin* (Keflex*) 500 Mg Capsule, 500 MG PO TID for 7 Days, CAP Prov:MY SNEED PA-C 12/15/18 Naproxen* (Naprosyn*) 500 Mg Tablet, 500 MG PO BID PRN for PAIN AND/OR INFLAMMATION, #30 TAB Prov:MY SNEED PA-C 12/15/18 Reported Medications Ferrous Sulfate (Iron) 134 Mg Tablet, 134 MG PO DAILY, TAB 12/05/18 [id number] ( 19) 1 Each Tablet, 1 TAB PO DAILY, TAB 10/24/18 Allergies Allergies: Coded Allergies: No Known Allergy (Unverified , 12/05/18) PMhx/Soc Medical and Surgical Hx: pt denies Medical Hx, pt denies Surgical Hx FmHx Family History: No diabetes Physical Exam Vitals Vital Signs Date Temp Pulse Resp B/P (MAP) Pulse Ox O2 O2 Flow FiO2 Time Delivery Rate 12/15/18 98.4 63 18 140/88 99 12:33 (105) Physical Exam Const: No acute distress Head: Atraumatic Eyes: Normal Conjunctiva ENT: Normal External Ears, Nose and Mouth. Neck: Full range of motion. No meningismus. Resp: Clear to auscultation bilaterally Cardio: Regular rate and rhythm, no murmurs Skin: No petechiae or rashes Back: No midline or flank tenderness Ext: No cyanosis, or edema Neur: Awake and alert neuro: M/S: Alert and oriented Face: EOMI, face and pharynx with normal sensation and function Motor: Normal strength throughout Sensation: Normal sensation throughout Speech: Normal Cerebel: Normal coordination Normal gait Normal finger to nose Psych: Normal Mood and Affect Result Diagram: 12/15/18 1404 12/15/18 1404 Results 24 hrs Laboratory Tests Test 12/15/18 13:42 12/15/18 13:45 12/15/18 14:04 Urine Color YELLOW Urine Clarity CLOUDY Urine pH 5.0 Urine Specific [place] 1.023 Urine Ketones NEGATIVE mg/dL Urine Nitrite NEGATIVE mg/dL Urine Bilirubin NEGATIVE mg/dL Urine Urobilinogen NEGATIVE mg/dL Urine Leukocyte Esterase 3+ Conchis/ul Urine Microscopic RBC 13 /HPF Urine Microscopic WBC > 182 /HPF Urine Squamous Epithelial Cells MODERATE /HPF Urine Bacteria FEW /HPF Urine Mucus FEW /HPF Urine Hemoglobin 3+ mg/dL Urine Glucose NEGATIVE mg/dL Urine Total Protein 1+ mg/dl POC Beta HCG, Qualitative BORDERLINE White Blood Count 8.2 10^3/ul Red Blood Count 4.30 10^6/ul Hemoglobin 13.7 g/dl Hematocrit 40.3 % Mean Corpuscular Volume 93.7 fl Mean Corpuscular Hemoglobin 31.9 pg Mean Corpuscular 34.0 g/dl Hemoglobin Concent Red Cell Distribution Width 11.8 % Platelet Count 300 10^3/UL Mean Platelet Volume 9.0 fl Immature Granulocytes % 0.900 % Neutrophils % 73.4 % Lymphocytes % 19.1 % Monocytes % 4.3 % Eosinophils % 1.7 % Basophils % 0.6 % Nucleated Red Blood Cells % 0.0 /100WBC Immature Granulocytes # 0.070 10^3/ul Neutrophils # 6.0 10^3/ul Lymphocytes # 1.6 10^3/ul Monocytes # 0.4 10^3/ul Eosinophils # 0.1 10^3/ul Basophils # 0.1 10^3/ul Nucleated Red Blood Cells # 0.0 10^3/ul Prothrombin Time 12.0 Sec Prothrombin Time Ratio 0.9 INR International 0.88 Normalized Ratio Activated Partial Thromboplast 26.3 Sec Time Sodium Level 142 mmol/L Potassium Level 4.1 mmol/L Chloride Level 110 mmol/L Carbon Dioxide Level 25 mmol/L Anion Gap 7 Blood Urea Nitrogen 13 mg/dl Creatinine 0.65 mg/dl Est Glomerular Filtrat > 60 mL/min Rate mL/min Glucose Level 95 mg/dl Calcium Level 8.8 mg/dl Current Medications Medications Dose Sig/Marilyn Start Time Status Last (Trade) Ordered Route PRN Stop Time Admin Dose Reason Admin Sodium 1,000 ml @ Q1H STAT 12/15/18 DC 12/15/18 Chloride 1,000 mls/hr IV 13:20 12/15/18 14:10 14:19 Ondansetron 4 mg ONCE STAT 12/15/18 DC 12/15/18 HCl (Zofran IV 13:20 12/15/18 14:10 Inj) 13:25 Ketorolac 30 mg ONCE STAT 12/15/18 DC 12/15/18 Tromethamine IV 13:20 12/15/18 14:10 (Toradol) 13:25 25 mg ONCE STAT 12/15/18 DC 12/15/18 Diphenhydrami IV 13:20 12/15/18 14:10 ne HCl 13:25 (Benadryl) [place] [id number] Radiology Main Line: [phone] DIAGNOSTIC IMAGING REPORT Patient: BRANDAN FLOR : 1990 Age: 28 Sex: F MR #: [id number] DOS: 12/15/18 1320 Ordering MD: MY SNEED PA-C Location: [facility] Room/Bed: PROCEDURE: CT brain without contrast CLINICAL INDICATION: Headache TECHNIQUE: CT of the brain without contrast was performed on a multidetector CT scanner, with multiplanar reformats. One or more of the following dose reduction techniques were used: Automated exposure control, adjustment in mA and / or kV according to patient size, use of iterative reconstructive technique. CTDIvol = 39 mGy; DLP = 555 mGy-cm. DICOM images are available. COMPARISON: None available FINDINGS: No acute intracranial hemorrhage is identified. No extra-axial fluid collection is seen. There is no mass effect. No midline shift is identified. The ventricles and sulci are within normal limits for size and configuration. The density of the brain is unremarkable. Fatima-white junctions are preserved. Calvarium and skull base are intact. Mild - moderate right sphenoid sinus mucosal thickening and posterior left ethmoid sinus opacification are seen. IMPRESSION: 1. No evidence of acute intracranial pathology. 2. Paranasal sinus disease described above. RPTAT: HESO .Alo Arthur MD, MD Date Time Electronically viewed and signed by .Alo Arthur MD, MD on 12/15/2018 14:03 .O/ CC: MY SNEED PA-C [id number] Procedures/MDM 28-year-old female presented to the emergency department complaining of headache and neck pain for the past 2 days. Neuro examination was unremarkable. Patient is administered IV fluids, IV Toradol, IV Zofran, IV Benadryl with significant improvement of her symptoms. CT brain without contrast was negative for any acute abnormalities. Full report interpreted by the radiologist may be viewed above. Differential diagnoses include meningitis, TIA, CVA, tension headache, migraine headache, cluster headache, and others. Low suspicion for life- threatening or emergent pathology. Patient is stable and appropriate for discharge and further outpatient management. Patient did have urinary tract infection and she will be treated for this as an outpatient. She was advised to return to the department immediately for any new or worsening or concerning symptoms and follow-up with her primary care physician within the next 24 to 48 hours. She was in agreement with the diagnosis, plan, need for follow-up, return precautions. Departure Diagnosis: Primary Impression: Headache Additional Impression: UTI (urinary tract infection) Condition: Fair Patient Instructions: Self-Care for Headaches Additional Instructions: Follow up with your PCP within the next 1-3 days for a repeat evaluation. If you require a referral to a specialist, your Primary Care Provider may be able to provide this for you. In most patient cases, a referral is not required. If you have further questions regarding this matter, please ask your Primary Care Prov ider. Return the the emergency department immediately if symptoms worsen or change. If you have any questions regarding medications, ask your pharmacist or us before you leave. If any adverse reactions, occur while taking your medications, discontinue the treatment and return to the emergency department immediately. If any new or worsening symptoms, uncontrolled fevers, or other unexplained symptoms occur, return to the emergency department immediately. Take your medications as directed, and complete the entire course of treatment. MY SNEED PA-C Dec 15, 2018 13:39
[2018-12-15] MEDS ORDERED: NAPR-985 PO (15:21)
[2018-12-15] MEDS ORDERED: CEPH-443 PO (15:22)
== END 2018-12-15 15:48 | disposition home or self-care (01) ==
LOC: FTE 12:30
DX: O99.89 Other specified diseases and conditions complicating pregnancy, childbirth and the puerperium (principal); R51 Headache; O86.20 Urinary tract infection following delivery, unspecified; B96.89 Other specified bacterial agents as the cause of diseases classified elsewhere
CPT/HCPCS: 70450; 80048; 81001; 81025; 85025; 85610; 85730; J1200; J1885; J2405; J7030; 36415; 96374; 96375